=== PATIENT | male | born 1995 | race Hispanic/Latino ===

== ENCOUNTER 2018-04-29 21:39 | Emergency (ER) | payer OTHER ==
[~2018-04-29] VITALS: Ht 157.5 cm; Wt 52.0 kg
[2018-04-30] MEDS ORDERED: ULTRAM50 MG PO (00:10)
[2018-04-30 00:58] VITALS: BP 115/56
== END 2018-04-30 00:59 | disposition home or self-care (01) ==
LOC: EME 21:39 → EDBD 21:39 → EME 04-30 00:59
DX: S00.83XA Contusion of other part of head, initial encounter (principal); S20.222A Contusion of left back wall of thorax, initial encounter; V49.40XA Driver injured in collision with unspecified motor vehicles in traffic accident, initial encounter; Y92.410 Unspecified street and highway as the place of occurrence of the external cause; Y99.0 Civilian activity done for income or pay; F17.200 Nicotine dependence, unspecified, uncomplicated
CPT/HCPCS: 70450; 72070; 72100; 72125; 99281; 99284